=== PATIENT | male | born 1965 | race Two or more races ===

== ENCOUNTER 2019-09-26 21:03 | Emergency (ER) | payer OTHER ==
[~2019-09-26] VITALS: Ht 170.2 cm; Wt 68.0 kg
[2019-09-26 21:22] VITALS: BP 103/62
[2019-09-26] MEDS ORDERED: HYDROCODONE/APAP 5/325MG 1 EACH TABLET ONE (21:55)
[2019-09-26] MEDS ORDERED: HYDROCODONE/APAP 5/325MG 1 EACH TABLET PO ONE (22:00)
--- NOTE | 2019-09-26 23:22 | NUR ---
CALLED [facility]ITO FOR READ
== END 2019-09-27 00:45 | disposition home or self-care (01) ==
LOC: ER 21:12
DX: S20.212A Contusion of left front wall of thorax, initial encounter (principal); Z95.818 Presence of other cardiac implants and grafts; V49.49XA Driver injured in collision with other motor vehicles in traffic accident, initial encounter; Y93.89 Activity, other specified; Y92.413 State road as the place of occurrence of the external cause; Y99.8 Other external cause status
CPT/HCPCS: 71111-TC